=== PATIENT | female | born 1970 | race Caucasian/White ===

== ENCOUNTER 2017-09-19 13:33 | Day surgery (SDC) | payer OTHER ==
[~2017-09-19 13:33] MED LIST: ALBU90OI6; CEPH500 PO; Colace100 MG PO; ESZO3; FAMO20; HYDR-86 PO; INSLI100I SC; INSULANI SC; Inderal40 MG PO; LABE200 PO; LOSA50; Norco 7.5-3251 EACH; OXYC5 PO; PREPOPIK POWDE1 EACH; SERT100
[2017-12-05] MEDS ORDERED: Inderal 20 mg T20 MG (12:50)
[2017-12-05] MEDS ORDERED: ALBU90OI6 (12:51)
[2017-12-05] MEDS ORDERED: SERT100 (12:51)
[2017-12-05] MEDS ORDERED: Prilosec Otc20 MG (12:51)
== END 2017-09-19 14:24 | disposition home or self-care (01) ==
LOC: ORSCSDS 13:33
DX: D50.9 Iron deficiency anemia, unspecified (principal); Z53.9 Procedure and treatment not carried out, unspecified reason
CPT/HCPCS: J0330; J1980; J2405

== ENCOUNTER 2017-09-20 10:38 | Day surgery (SDC) | payer OTHER ==
[~2017-09-20] VITALS: Ht 165.1 cm; Wt 66.4 kg
[2017-12-05] MEDS ORDERED: Inderal 20 mg T20 MG (12:50)
[2017-12-05] MEDS ORDERED: SERT100 (12:51)
[2017-12-05] MEDS ORDERED: Prilosec Otc20 MG (12:51)
[2017-12-05] MEDS ORDERED: ALBU90OI6 (12:51)
== END 2017-09-20 13:25 | disposition home or self-care (01) ==
LOC: ORSCSDS 10:38
PROVIDERS: Internal Medicine Gastroenterology
PROC: 0DBN8ZX Excision of Sigmoid Colon, Via Natural or Artificial Opening Endoscopic, Diagnostic (ICD-10-PCS; principal; 2017-09-20 12:00)
PROC: 0DB68ZX Excision of Stomach, Via Natural or Artificial Opening Endoscopic, Diagnostic (ICD-10-PCS; principal; 2017-09-20 12:00)
DX: D50.9 Iron deficiency anemia, unspecified (principal); K29.00 Acute gastritis without bleeding; K20.9 Esophagitis, unspecified; K52.9 Noninfective gastroenteritis and colitis, unspecified; D12.5 Benign neoplasm of sigmoid colon; K64.8 Other hemorrhoids; Z98.84 Bariatric surgery status; Z86.010 Personal history of colon polyps; I10 Essential (primary) hypertension; E78.5 Hyperlipidemia, unspecified; B19.20 Unspecified viral hepatitis C without hepatic coma; J45.909 Unspecified asthma, uncomplicated; L93.0 Discoid lupus erythematosus; F17.210 Nicotine dependence, cigarettes, uncomplicated
CPT/HCPCS: 88305; 88342

== ENCOUNTER 2017-12-12 06:34 | Day surgery (SDC) | payer OTHER ==
[~2017-12-12] VITALS: Ht 165.1 cm; Wt 78.8 kg
[~2017-12-12 06:34] MED LIST changes: +Inderal 20 mg T20 MG; +Prilosec Otc20 MG
== END 2017-12-12 08:42 | disposition home or self-care (01) ==
LOC: ORSCSDS 06:34
PROVIDERS: Internal Medicine Gastroenterology
PROC: 0DB68ZX Excision of Stomach, Via Natural or Artificial Opening Endoscopic, Diagnostic (ICD-10-PCS; principal; 2017-12-12 08:00)
DX: D50.9 Iron deficiency anemia, unspecified (principal); K29.70 Gastritis, unspecified, without bleeding; K29.80 Duodenitis without bleeding; K20.9 Esophagitis, unspecified; R11.2 Nausea with vomiting, unspecified; I10 Essential (primary) hypertension; E78.5 Hyperlipidemia, unspecified; Z98.84 Bariatric surgery status; B19.20 Unspecified viral hepatitis C without hepatic coma; J45.909 Unspecified asthma, uncomplicated; Z87.891 Personal history of nicotine dependence; Z79.899 Other long term (current) drug therapy
CPT/HCPCS: 88305; 88342; J0330; J1980; J2405; J7120

== ENCOUNTER → 2020-01-28 | Outpatient (CLI) | payer OTHER ==
[2020-01-28 10:17] LABS: BASOPHILS ABSOLUTE AUTO 0.11 K/mm3 (0.00-0.23); BASOPHILS PERCENT AUTO 1 % (0-2); EOSINOPHILS ABSOLUTE AUTO 0.28 K/mm3 (0.00-0.68); EOSINOPHILS PERCENT AUTO 2 % (0-6); Hematocrit 43.2 % (33.0-51.0); Hemoglobin 14.6 g/dL (11.5-16.0); IMMATURE GRAN ABSOLUTE AUTO 0.04 K/mm3 (0.00-0.10); IMMATURE GRAN PERCENT AUTO 0 % (0-1); LYMPHOCYTES PERCENT AUTO 23 % (21-46); MONOCYTES ABSOLUTE AUTO 1.14 K/mm3 (0.16-1.47); MONOCYTES PERCENT AUTO 9 % (4-13); Mean Corpuscular HGB 30.3 pg (26.0-34.0); Mean Corpuscular HGB Conc 33.8 g/dL (31.5-36.5); Mean Corpuscular Volume 90 fL (80-100); Mean Platelet Volume 9.4 fL (9.1-12.4); NEUTROPHILS ABSOLUTE AUTO 8.06 K/mm3 (1.96-9.15); NEUTROPHILS PERCENT AUTO 64 % (41-73); Platelet Count 366 K/mm3 (150-400); RDW Coefficient Variation 14.8 % (11.7-14.2); RDW Standard Deviation 48.6 fL (35.1-46.3); Red Blood Cell Count 4.82 M/mm3 (3.80-5.20); White Blood Cell Count 12.53 K/mm3 (4.00-11.30)
[2020-01-28 10:31] LABS: Alanine Aminotransfer (ALT/SGP 14 U/L (12-78); Albumin, Blood 4.2 g/dL (3.4-5.0); Albumin/Globulin Ratio 1.3 (0.8-1.8); Alk Phos 43 U/L (40-126); Anion Gap 8 mmol/L (6-16); Aspartate Aminotrans (AST/SGOT 14 U/L (12-37); Bilirubin, Total 0.3 mg/dL (0.1-1.0); Blood Urea Nitrogen 18 mg/dL (8-24); CO2, Blood 28 mmol/L (21-32); Calcium, Blood 8.8 mg/dL (8.5-10.1); Chloride, Blood 107 mmol/L (98-108); Globulin, Blood 3.3 g/dL (2.2-4.0); Glomerular Filtration Rate >60 (60-); Glucose, Blood 87 mg/dL (70-99); Potassium, Blood 4.2 mmol/L (3.5-5.5); Sodium, Blood 143 mmol/L (136-145); Total Protein, Blood 7.5 g/dL (6.4-8.2)
[2020-01-28 10:32] LABS: Troponin I <0.017 ng/mL (0.000-0.040)
== END | disposition home or self-care (01) ==
LOC: LAB EV 10:13 → LAB SHORT 10:13
PROVIDERS: Physician Assistant Medical
DX: R07.89 Other chest pain (principal)
CPT/HCPCS: 80053; 84484; 85025; 85379

== ENCOUNTER 2020-02-06 18:33 | Emergency (ER) | payer OTHER | END 2020-02-06 18:55 | disposition left against medical advice (07) | LOC: ER 18:33 | DX: Z53.21 Procedure and treatment not carried out due to patient leaving prior to being seen by health care provider (principal) ==

== ENCOUNTER 2020-02-08 12:08 | Observation (INO) | payer OTHER ==
[~2020-02-08] VITALS: Ht 165.1 cm; Wt 63.2 kg
[2020-02-08 12:40] LABS: BASOPHILS ABSOLUTE AUTO 0.09 K/mm3 (0.00-0.23); BASOPHILS PERCENT AUTO 1 % (0-2); EOSINOPHILS ABSOLUTE AUTO 0.34 K/mm3 (0.00-0.68); EOSINOPHILS PERCENT AUTO 3 % (0-6); Hematocrit 45.7 % (33.0-51.0); Hemoglobin 15.1 g/dL (11.5-16.0); IMMATURE GRAN ABSOLUTE AUTO 0.03 K/mm3 (0.00-0.10); IMMATURE GRAN PERCENT AUTO 0 % (0-1); LYMPHOCYTES ABSOLUTE AUTO 2.98 K/mm3 (0.84-5.20); LYMPHOCYTES PERCENT AUTO 29 % (21-46); MONOCYTES ABSOLUTE AUTO 0.89 K/mm3 (0.16-1.47); MONOCYTES PERCENT AUTO 9 % (4-13); Mean Corpuscular HGB 30.1 pg (26.0-34.0); Mean Corpuscular Volume 91 fL (80-100); Mean Platelet Volume 9.4 fL (9.1-12.4); NEUTROPHILS ABSOLUTE AUTO 6.09 K/mm3 (1.96-9.15); NEUTROPHILS PERCENT AUTO 58 % (41-73); Platelet Count 385 K/mm3 (150-400); RDW Coefficient Variation 14.8 % (11.7-14.2); RDW Standard Deviation 49.5 fL (35.1-46.3); Red Blood Cell Count 5.02 M/mm3 (3.80-5.20); White Blood Cell Count 10.42 K/mm3 (4.00-11.30)
[2020-02-08 13:04] LABS: Alanine Aminotransfer (ALT/SGP 19 U/L (12-78); Albumin, Blood 3.8 g/dL (3.4-5.0); Albumin/Globulin Ratio 1.1 (0.8-1.8); Alk Phos 43 U/L (50-136); Anion Gap 4 mmol/L (6-16); Aspartate Aminotrans (AST/SGOT 15 U/L (12-37); Bilirubin, Total 0.5 mg/dL (0.1-1.0); Blood Urea Nitrogen 12 mg/dL (8-24); Bun/Creatinine Ratio 18.7 (12.0-20.0); CO2, Blood 28 mmol/L (21-32); Calcium, Blood 8.5 mg/dL (8.5-10.1); Chloride, Blood 107 mmol/L (98-108); Creatinine, Blood 0.64 mg/dL (0.40-1.00); Globulin, Blood 3.5 g/dL (2.2-4.0); Glomerular Filtration Rate >60 (60-); Glucose, Blood 95 mg/dL (70-99); Potassium, Blood 3.7 mmol/L (3.5-5.5); Sodium, Blood 139 mmol/L (136-145); Total Protein, Blood 7.3 g/dL (6.4-8.2); Troponin I <0.015 ng/mL (0.000-0.040)
[2020-02-08] MEDS ORDERED: NEURONTIN300 MG PO (15:27)
[2020-02-08] MEDS ORDERED: HYDROCODONE-AC1 EAC7 PO (15:27)
--- NOTE | 2020-02-08 18:05 | NUR ---
SUMMARY PT ARRIVED FROM THE ER FOR CHEST PAIN, PT IS ALERT AND ORIENTED, INDEPENDENT IN THE ROOM, DENIES CHEST PAIN AT THIS TIME, PLAN FOR STRESS TEST IN AM, VSS, NO ACUTE CHANGES, WILL CONT TO MONITOR
--- NOTE | 2020-02-09 04:24 | NUR ---
SHIFT SUMMARY NO ACUTE CHANGES TO REPORT OVERNIGHT. PT HAS RESTED WELL AND DENIED NEEDS. SHE HAS DENIED CP, SOB OR NAUSEA. TROPONIN'S HAVE REMAINED NEGATIVE, AND VITALS ARE STABLE. PLAN IS FOR STRESS TEST TODAY. NPO AFTER BREAKFAST. BED IN LOWEST POSITION, CALL LIGHT WITHIN REACH. WILL CONTINUE TO MONITOR AND REPORT TO ONCOMING RN.
--- NOTE | 2020-02-09 18:26 | NUR ---
SHIFT SUMMARY PT ALERT AND ORIENTED THIS SHIFT. PT INDEPENDENT IN THE ROOM. CARDIAC STRESS TEST PERFORMED TODAY. PT DENIES CP THROUGHOUT THIS SHIFT. PT SITTING IN BED WATCHING TELEVISION.
--- NOTE | 2020-02-09 19:32 | NUR ---
PT says she wants to discharge having no chest pain. Had both parts of cardiac stress test today. Says she will go AMA in 1 hour if MD does not DC home prior to then. Day RN Tony says he tried to reach DR without success. Will discuss with rewrite editor. Troponins negative. Smoker says chest pain related to tobacco dependance.
--- NOTE | 2020-02-09 19:52 | NUR ---
Paged hospitalist INOCENCIA Almaguer. No call back yet offered AMA form as PT says she is leaving AMA.
--- NOTE | 2020-02-09 20:06 | NUR ---
PT had signed AMA form dc home after dc IV DC tele monitor. Denies chestpain & pleasant. Will notify MD of AMA dc .
--- NOTE | 2020-02-09 21:01 | NUR ---
late entry for INOCENC[facility] Almaguer called back & was informed that PT had DC AMA at 2004. He called back around 2024.
== END 2020-02-09 20:05 | disposition left against medical advice (07) ==
LOC: ER 12:08 → MEDS 12:09
PROVIDERS: Physician Assistant; ADMIT Internal Medicine
DX: R07.89 Other chest pain (principal); I10 Essential (primary) hypertension; F17.210 Nicotine dependence, cigarettes, uncomplicated; R73.03 Prediabetes; Z90.3 Acquired absence of stomach [part of]; Z88.5 Allergy status to narcotic agent; Z79.899 Other long term (current) drug therapy; Z79.891 Long term (current) use of opiate analgesic
CPT/HCPCS: 36415; 71046; 78452; 80053; 84484; 85025; 93005; 93010; 93017; 96372; 99285-25; A9270-GY; A9500; G0378; J0706; J1650; J2785

== ENCOUNTER 2020-06-07 07:48 | Day surgery (SDC) | payer OTHER ==
[~2020-06-07 07:48] MED LIST changes: +ACET325 PO; +ALBU3IS INH; +AMLO10 PO; +AMLODIPINE BESYL5 MG PO; +ATOR20 PO; +Aspirin EC81 MG PO; +CHANTIX1 MG PO; +CLOP75 PO; +FAMO20 PO; +HYDROCODONE-AC1 EAC7 PO; +LOSA50 PO; +METO25ER PO; +NEURONTIN300 MG PO
--- NOTE | 2020-06-07 09:24 | NUR ---
Patient up to Ambulate independently. Gait steady. Discharge instructions reviewed with patient. Patient verbalizes understanding. Copy given to patient to take home. NO MEDS GIVEN TO PATEINT FOR PROCEDURE. AMBULATED OUT
== END 2020-06-07 22:00 | disposition home or self-care (01) ==
LOC: CT 07:48 → ORD 07:48 → CT 09:00 → ORD 22:00
DX: I25.10 Atherosclerotic heart disease of native coronary artery without angina pectoris (principal); I10 Essential (primary) hypertension; E78.5 Hyperlipidemia, unspecified; J44.9 Chronic obstructive pulmonary disease, unspecified; Z79.82 Long term (current) use of aspirin; Z79.899 Other long term (current) drug therapy; Z87.891 Personal history of nicotine dependence; Z88.5 Allergy status to narcotic agent
CPT/HCPCS: 75574; Q9967

== ENCOUNTER → 2020-09-15 | Outpatient (CLI) | payer OTHER, SELFPAY ==
[~2020-09-15] MED LIST changes: +ACYC400 PO; +AMLO5 PO; +Isosorbide Mono30 MG; +LIPITOR80 MG PO; +Norco 10-325 T1 EACH PO; +RANO500T PO; +VALA500
[2020-09-15 14:24] LABS: BASOPHILS ABSOLUTE AUTO 0.08 K/mm3 (0.00-0.23); BASOPHILS PERCENT AUTO 1 % (0-2); EOSINOPHILS ABSOLUTE AUTO 0.29 K/mm3 (0.00-0.68); EOSINOPHILS PERCENT AUTO 3 % (0-6); Hematocrit 42.8 % (33.0-51.0); Hemoglobin 14.2 g/dL (11.5-16.0); IMMATURE GRAN ABSOLUTE AUTO 0.03 K/mm3 (0.00-0.10); IMMATURE GRAN PERCENT AUTO 0 % (0-1); LYMPHOCYTES PERCENT AUTO 27 % (21-46); MONOCYTES ABSOLUTE AUTO 0.82 K/mm3 (0.16-1.47); MONOCYTES PERCENT AUTO 7 % (4-13); Mean Corpuscular HGB 29.1 pg (26.0-34.0); Mean Corpuscular HGB Conc 33.2 g/dL (31.5-36.5); Mean Corpuscular Volume 88 fL (80-100); Mean Platelet Volume 9.7 fL (9.1-12.4); NEUTROPHILS ABSOLUTE AUTO 6.83 K/mm3 (1.96-9.15); NEUTROPHILS PERCENT AUTO 62 % (41-73); Platelet Count 316 K/mm3 (150-400); RDW Coefficient Variation 14.6 % (11.7-14.2); RDW Standard Deviation 46.5 fL (35.1-46.3); Red Blood Cell Count 4.88 M/mm3 (3.80-5.20); White Blood Cell Count 11.05 K/mm3 (4.00-11.30)
[2020-09-15 14:31] LABS: Anion Gap 9 mmol/L (6-16); Blood Urea Nitrogen 13 mg/dL (8-24); Bun/Creatinine Ratio 20.3 (12.0-20.0); CO2, Blood 26 mmol/L (21-32); Calcium, Blood 8.7 mg/dL (8.5-10.1); Chloride, Blood 103 mmol/L (98-108); Creatinine, Blood 0.64 mg/dL (0.40-1.00); Glomerular Filtration Rate >60 (60-); Glucose, Blood 99 mg/dL (70-99); Potassium, Blood 3.9 mmol/L (3.5-5.5); Sodium, Blood 138 mmol/L (136-145)
== END ==
LOC: LAB SHORT 14:17 → LAB EV 14:17
PROVIDERS: Physician Assistant Surgical
DX: R07.89 Other chest pain (principal)
CPT/HCPCS: 80048; 84484; 85025

== ENCOUNTER 2020-11-12 09:01 | Day surgery (SDC) | payer OTHER, SELFPAY ==
[~2020-11-12] VITALS: Ht 165.1 cm; Wt 78.0 kg
[~2020-11-12 09:01] MED LIST changes: -ACYC400 PO; -AMLO5 PO; -Isosorbide Mono30 MG; -LIPITOR80 MG PO; -Norco 10-325 T1 EACH PO; -RANO500T PO; -VALA500
[2020-11-12] MEDS ORDERED: VALA500 (09:56)
[2020-11-12] MEDS ORDERED: Isosorbide Mono30 MG (12:07)
--- NOTE | 2020-11-12 14:16 | NUR ---
ASSUMED CARE OF PATIENT FROM ADAM PERALTA. PATIENT RELAXING IN THE RECLINER, ON THE MONITOR. VVS. NO PAIN NOTED. TR BAND IN PLACE TO THE RIGHT RADIAL AND FLAT AT THIS TIME. DUE TO DISCHARGE HOME AROUND 1500. CALL LIGHT IN REACH.
--- NOTE | 2020-11-12 14:51 | NUR ---
PATEINT UP TO THE RESTROOM. OFF MONITOR AND STARTING TO GET DRESSED AND TR BAND FLATBUT SITE STARTED BLEEDING. MANUAL PRESSURE HELP AND TR BAND REINFLATED WITH 12 MNL OF AIR. PATIENT REMAINS IN RECLINER. CONTINUE TO MONITOR.
[2020-11-12] MEDS ORDERED: CLOP75 PO (15:35)
--- NOTE | 2020-11-12 15:41 | NUR ---
BEGAN DEFLATING TR BAND AGAIN.2 ML REMOVED. NO BLEEDING NOTED. REVIEWED DISCHARGE INSTRUCTIONS WITH PATIENT AND FAMILY (AT THE BEDSIDE). REVIEWED NEW SCRIPT FOR IMDUR AND TO TAKE 15 ML DAILY. MONITOR BP AND WATCH FOR DIZZINESS WHEN GETTING UP SUDDENLY. PATIENT STATES SHE IS ABLE TO MONITOR HER BLOOD PRESSURES AT HOME AND CAN KEEP A LOG FOR THE MD. FOLLOW UP APPOINTMENT November AT 1130. ALL DISCHARGE PAPERWORK SIGNED AND COPIES GIVEN TO THE PATIENT.
--- NOTE | 2020-11-12 16:12 | NUR ---
TR BAND FLAT FOR THE SECOND TIME AT 1605. NO BLEEDING OR HEMATOMA NOTED. FAMILY AT THE BEDSIDE. NO PAIN NOTED FROM THE PATEINT.
--- NOTE | 2020-11-12 16:27 | NUR ---
PATIENT UP AND DRESSED. TR BAND REMAINS IN PLACE. NO PAIN NOTED. NO BLEEDING NOTED. NO HEMATOMA NOTED.
--- NOTE | 2020-11-12 16:34 | NUR ---
PATIENT TR BAND REMOVED AND SITE CLEANED. PRESSURE DRESSING PLACED AND WHITE BOARD REPLACED TO THE RIGHT WRIST TO REMIND PATIENT NOT TO BEND OR USE ARM FOR LIFTING, PUSHING, PULLING FOR THE NEXT 24-48 HOURS. PATIENT UNDERSTANDS TO KEEP THE WRIST CLEAN AND DRY AND REPORT ANY SIGNS OF INFECTION, FEVER, REDNESS OR IF REBLEEDIN OCCURS THEN APPLY PRESSURE AND RETURN TO THE HOPSITAL. PELON VERBALIZED ALL AND IS DISCHARGED HOME VIA WHEELCHAIR TO HOME WITH DIRECTOR OF LOSS PREVENTION. PATIENT HEADED TO COMPUTER AIDED DESIGN TECHNICIAN NEW SCRIPT AT [facility] [place]. VVS, NO PAIN.
[2021-03-14] MEDS ORDERED: RANO500T PO (14:10)
[2021-03-14] MEDS ORDERED: ACYC400 PO ×2 (14:10→15:42)
[2021-03-14] MEDS ORDERED: AMLO5 PO (15:42)
[2021-03-14] MEDS ORDERED: Norco 10-325 T1 EACH PO (15:44)
[2021-03-15] MEDS ORDERED: LIPITOR80 MG PO (09:44)
== END 2020-11-12 16:46 | disposition home or self-care (01) ==
LOC: MHTC 09:01
DX: I25.118 Atherosclerotic heart disease of native coronary artery with other forms of angina pectoris (principal); I11.0 Hypertensive heart disease with heart failure; I50.9 Heart failure, unspecified; Z88.5 Allergy status to narcotic agent; E78.5 Hyperlipidemia, unspecified; Z87.891 Personal history of nicotine dependence
CPT/HCPCS: 76937; 85347; 93454; 93571; 99152; 99153; C1769; C1887; C1894; J1644; J2250; J2370; J3010; J7030; J7050; Q9967

== ENCOUNTER 2020-11-25 08:30 | Day surgery (SDC) | payer OTHER, SELFPAY ==
[~2020-11-25] VITALS: Ht 165.1 cm; Wt 76.4 kg
[~2020-11-25 08:30] MED LIST changes: +Isosorbide Mono30 MG; +VALA500
--- NOTE | 2020-11-25 09:01 | NUR ---
11/25/20 0901 Christen Hope 1 TRY RIGHT WRIST VALVE 2 TRY RIGHT UPPER ARM VALVE
[2021-03-14] MEDS ORDERED: RANO500T PO (14:10)
[2021-03-14] MEDS ORDERED: ACYC400 PO ×2 (14:10→15:42)
[2021-03-14] MEDS ORDERED: AMLO5 PO (15:42)
[2021-03-14] MEDS ORDERED: Norco 10-325 T1 EACH PO (15:44)
[2021-03-15] MEDS ORDERED: LIPITOR80 MG PO (09:44)
== END 2020-11-25 11:38 | disposition home or self-care (01) ==
LOC: ORSCSDS 08:30
PROVIDERS: Internal Medicine Gastroenterology
PROC: 0DBL8ZX Excision of Transverse Colon, Via Natural or Artificial Opening Endoscopic, Diagnostic (ICD-10-PCS; principal; 2020-11-25 09:45)
DX: R93.3 Abnormal findings on diagnostic imaging of other parts of digestive tract (principal); D12.3 Benign neoplasm of transverse colon; D64.9 Anemia, unspecified; Z98.84 Bariatric surgery status; Z86.19 Personal history of other infectious and parasitic diseases; K57.30 Diverticulosis of large intestine without perforation or abscess without bleeding; Z83.71 Family history of colonic polyps; K64.8 Other hemorrhoids; Z79.899 Other long term (current) drug therapy
CPT/HCPCS: 88305; J2704; J7120

== ENCOUNTER 2021-04-02 12:39 | Emergency (ER) | payer OTHER ==
[~2021-04-02] VITALS: Ht 165.1 cm; Wt 81.7 kg
[~2021-04-02 12:39] MED LIST changes: +ACYC400 PO; +AMLO5 PO; +LIPITOR80 MG PO; +Norco 10-325 T1 EACH PO; +RANO500T PO
[2021-04-02 13:05] LABS: BASOPHILS PERCENT AUTO 1 % (0-2); EOSINOPHILS PERCENT AUTO 7 % (0-6); Hemoglobin 13.5 g/dL (11.5-16.0); IMMATURE GRAN ABSOLUTE AUTO 0.01 K/mm3 (0.00-0.10); IMMATURE GRAN PERCENT AUTO 0 % (0-1); LYMPHOCYTES ABSOLUTE AUTO 3.02 K/mm3 (0.84-5.20); LYMPHOCYTES PERCENT AUTO 41 % (21-46); MONOCYTES ABSOLUTE AUTO 0.74 K/mm3 (0.16-1.47); MONOCYTES PERCENT AUTO 10 % (4-13); Mean Corpuscular HGB 30.5 pg (26.0-34.0); Mean Corpuscular HGB Conc 33.8 g/dL (31.5-36.5); Mean Corpuscular Volume 90 fL (80-100); Mean Platelet Volume 9.3 fL (9.1-12.4); NEUTROPHILS ABSOLUTE AUTO 3.07 K/mm3 (1.96-9.15); NEUTROPHILS PERCENT AUTO 41 % (41-73); Platelet Count 415 K/mm3 (150-400); RDW Coefficient Variation 13.9 % (11.7-14.2); RDW Standard Deviation 46.5 fL (35.1-46.3); Red Blood Cell Count 4.43 M/mm3 (3.80-5.20); White Blood Cell Count 7.44 K/mm3 (4.00-11.30)
[2021-04-02 13:28] LABS: Alanine Aminotransfer (ALT/SGP 22 U/L (12-78); Albumin, Blood 3.7 g/dL (3.4-5.0); Alk Phos 38 U/L (50-136); Anion Gap 5 mmol/L (6-16); Aspartate Aminotrans (AST/SGOT 14 U/L (12-37); Bilirubin, Total 0.4 mg/dL (0.1-1.0); Blood Urea Nitrogen 17 mg/dL (8-24); Bun/Creatinine Ratio 26.7 (12.0-20.0); CO2, Blood 27 mmol/L (21-32); Calcium, Blood 8.5 mg/dL (8.5-10.1); Chloride, Blood 109 mmol/L (98-108); Creatinine, Blood 0.64 mg/dL (0.40-1.00); Globulin, Blood 3.6 g/dL (2.2-4.0); Glomerular Filtration Rate >60 (60-); Glucose, Blood 93 mg/dL (70-99); Potassium, Blood 4.1 mmol/L (3.5-5.5); Sodium, Blood 141 mmol/L (136-145); Total Protein, Blood 7.3 g/dL (6.4-8.2); Troponin I <0.015 ng/mL (0.000-0.040)
== END 2021-04-02 18:19 | disposition home or self-care (01) ==
LOC: ER 12:39
PROVIDERS: Physician Assistant
DX: R07.89 Other chest pain (principal); I10 Essential (primary) hypertension; E11.9 Type 2 diabetes mellitus without complications; E78.5 Hyperlipidemia, unspecified; F17.210 Nicotine dependence, cigarettes, uncomplicated; Z95.5 Presence of coronary angioplasty implant and graft; Z79.82 Long term (current) use of aspirin; Z79.899 Other long term (current) drug therapy
CPT/HCPCS: 36415; 71046; 80053; 84484; 85025; 93005; 93010; 99285-25

== ENCOUNTER 2021-04-21 08:02 | Emergency (ER) | payer OTHER ==
[~2021-04-21] VITALS: Ht 170.2 cm; Wt 72.6 kg
== END 2021-04-21 09:09 | disposition home or self-care (01) ==
LOC: ER 08:02
DX: U07.1 COVID-19 (principal); E11.9 Type 2 diabetes mellitus without complications; I10 Essential (primary) hypertension; Z87.891 Personal history of nicotine dependence; Z79.899 Other long term (current) drug therapy; Z79.82 Long term (current) use of aspirin; Z79.02 Long term (current) use of antithrombotics/antiplatelets
CPT/HCPCS: 99284

== ENCOUNTER → 2022-01-03 | Outpatient (CLI) | payer OTHER | END | disposition home or self-care (01) | LOC: PLD 12:12 → LAB SHORT 12:12 | DX: L30.8 Other specified dermatitis (principal) | CPT/HCPCS: 88305; 88313 ==

== ENCOUNTER 2022-06-01 08:27 | Day surgery (SDC) | payer OTHER ==
[2022-05-30 16:58] LABS: BASOPHILS PERCENT AUTO 1 % (0-2); EOSINOPHILS ABSOLUTE AUTO 0.37 K/mm3 (0.00-0.68); EOSINOPHILS PERCENT AUTO 3 % (0-6); Hematocrit 43.9 % (33.0-51.0); Hemoglobin 14.3 g/dL (11.5-16.0); IMMATURE GRAN ABSOLUTE AUTO 0.04 K/mm3 (0.00-0.10); IMMATURE GRAN PERCENT AUTO 0 % (0-1); LYMPHOCYTES ABSOLUTE AUTO 2.97 K/mm3 (0.84-5.20); LYMPHOCYTES PERCENT AUTO 27 % (21-46); MONOCYTES ABSOLUTE AUTO 0.88 K/mm3 (0.16-1.47); MONOCYTES PERCENT AUTO 8 % (4-13); Mean Corpuscular HGB 29.3 pg (26.0-34.0); Mean Corpuscular HGB Conc 32.6 g/dL (31.5-36.5); Mean Corpuscular Volume 90 fL (80-100); Mean Platelet Volume 9.8 fL (9.1-12.4); NEUTROPHILS PERCENT AUTO 60 % (41-73); Platelet Count 360 K/mm3 (150-400); RDW Coefficient Variation 14.2 % (11.7-14.2); RDW Standard Deviation 46.7 fL (35.1-46.3); Red Blood Cell Count 4.88 M/mm3 (3.80-5.20); White Blood Cell Count 10.96 K/mm3 (4.00-11.30)
[2022-05-30 18:01] LABS: Anion Gap 6 mmol/L (6-16); Beta HCG, Quantitative, Serum <1 mIU/mL (0-3); Blood Urea Nitrogen 12 mg/dL (8-24); Bun/Creatinine Ratio 19.6 (12.0-20.0); CO2, Blood 24 mmol/L (21-32); Calcium, Blood 9.6 mg/dL (8.5-10.1); Chloride, Blood 104 mmol/L (98-108); Creatinine, Blood 0.61 mg/dL (0.40-1.00); Glomerular Filtration Rate 108 (60-); Glucose, Blood 100 mg/dL (70-99); Potassium, Blood 3.8 mmol/L (3.5-5.5); Sodium, Blood 134 mmol/L (136-145)
[~2022-06-01] VITALS: Ht 165.1 cm; Wt 87.0 kg
[2022-06-01] MEDS ORDERED: ACYC400 PO (08:56)
--- NOTE | 2022-06-01 09:25 | NUR ---
Ambulatory in Day Surgery History, Chart, Medications and Allergies reviewed before start of procedure. Lungs clear T/O to Auscultation. Pre-Op teaching done. Pt verbalizes understanding.
--- NOTE | 2022-06-01 12:47 | NUR ---
06/01/22 1247 Anahi Wade CATH PLACED BY RODRIGO PHAN, AFTER DRAPPING.
--- NOTE | 2022-06-01 17:46 | NUR ---
NO VAGINAL DRAINAGE. PT REPORTED LOWER ABD GAS PAINS/BLADDER SPASMS RESTING WITH EYES CLOSED AFTER MORPHINE GIVEN. TAKING SMALL AMOUNT PO INTAKE WITHOUT NAUSEA. OSCAR WITH CLEAR YELLOW URINE OUTPUT
--- NOTE | 2022-06-02 01:21 | NUR ---
PT REFUSED ABD BINDER AT THIS TIME. EDUCATED ON BENEFIT POST-OPERATIVELY AND LEFT AT BEDSIDE.
[2022-06-02 04:29] LABS: BASOPHILS ABSOLUTE AUTO 0.04 K/mm3 (0.00-0.23); BASOPHILS PERCENT AUTO 0 % (0-2); EOSINOPHILS ABSOLUTE AUTO 0.04 K/mm3 (0.00-0.68); EOSINOPHILS PERCENT AUTO 0 % (0-6); Hematocrit 41.1 % (33.0-51.0); Hemoglobin 13.6 g/dL (11.5-16.0); IMMATURE GRAN ABSOLUTE AUTO 0.04 K/mm3 (0.00-0.10); IMMATURE GRAN PERCENT AUTO 0 % (0-1); LYMPHOCYTES ABSOLUTE AUTO 2.69 K/mm3 (0.84-5.20); LYMPHOCYTES PERCENT AUTO 16 % (21-46); MONOCYTES ABSOLUTE AUTO 1.57 K/mm3 (0.16-1.47); MONOCYTES PERCENT AUTO 9 % (4-13); Mean Corpuscular HGB 29.8 pg (26.0-34.0); Mean Corpuscular HGB Conc 33.1 g/dL (31.5-36.5); Mean Corpuscular Volume 90 fL (80-100); Mean Platelet Volume 10.1 fL (9.1-12.4); NEUTROPHILS ABSOLUTE AUTO 12.57 K/mm3 (1.96-9.15); NEUTROPHILS PERCENT AUTO 74 % (41-73); Platelet Count 347 K/mm3 (150-400); RDW Coefficient Variation 14.4 % (11.7-14.2); RDW Standard Deviation 48.7 fL (35.1-46.3); Red Blood Cell Count 4.56 M/mm3 (3.80-5.20); White Blood Cell Count 16.95 K/mm3 (4.00-11.30)
--- NOTE | 2022-06-02 04:38 | NUR ---
SHIFT SUMMARY: PT RESTED COMFORTABLY T/O THE NIGHT. DENIED NAUSEA. TOLERATING ADVANCED DIET WITH PO FLUIDS AND JELLO. OSCAR REMAINS IN PLACE AND IS PATENT. A&OX4. REPORTS THAT SHE IS PASSING GAS. MACY PAD REMAINS IN PLACE WITH SCANT DISCHARGE NOTED. C/O MILD PAIN T/O THE NIGHT THAT WAS WELL MANAGED PER EMAR ORDERS. PLANS TO DISCHARGE TODAY.
[2022-06-02] MEDS ORDERED: IBUP400 PO (10:04)
[2022-06-02] MEDS ORDERED: Percocet 5-3251 EACH PO (10:05)
[2022-06-02] MEDS ORDERED: PROM12.5S PR (10:07)
[2022-06-02] MEDS ORDERED: SIME80CH PO (10:08)
== END 2022-06-02 11:30 | disposition home or self-care (01) ==
LOC: SURS 08:27 → ORSCMMR 08:27 → SURS 16:08 → ORSCMMR 06-02 11:30 → SURS 06-02 11:30
PROVIDERS: Obstetrics & Gynecology
PROC: 0UT74ZZ Resection of Bilateral Fallopian Tubes, Percutaneous Endoscopic Approach (ICD-10-PCS; principal; 2022-06-01 09:30)
PROC: 0UBF4ZX Excision of Cul-de-sac, Percutaneous Endoscopic Approach, Diagnostic (ICD-10-PCS; principal; 2022-06-01 09:30)
PROC: 0UT94ZL Resection of Uterus, Supracervical, Percutaneous Endoscopic Approach (ICD-10-PCS; principal; 2022-06-01 09:30)
DX: N92.1 Excessive and frequent menstruation with irregular cycle (principal); N93.8 Other specified abnormal uterine and vaginal bleeding; N94.6 Dysmenorrhea, unspecified; I10 Essential (primary) hypertension; E78.5 Hyperlipidemia, unspecified; I25.10 Atherosclerotic heart disease of native coronary artery without angina pectoris; J45.909 Unspecified asthma, uncomplicated; Z87.891 Personal history of nicotine dependence; Z79.02 Long term (current) use of antithrombotics/antiplatelets; Z79.899 Other long term (current) drug therapy; Z79.82 Long term (current) use of aspirin
CPT/HCPCS: 58542; 49321; S2900; 36415; 80048; 84702; 85025; 86850; 86900; 86901; 88305; 88307; A9270; J0690; J1100; J1200; J1885; J2250; J2270; J2405; J2704; J3010; J7120

== ENCOUNTER → 2022-11-13 | Outpatient (CLI) | payer OTHER ==
[~2022-11-13] MED LIST changes: +ALBU8HFA2 INH; +AZIT500 PO; +CLOT10 MT; +GUAI600T33 PO; +HYDACE10B PO; +IBUP400 PO; +IPRAT-ALBUT 0.5-3 ML INH; +PROM12.5S PR; +Percocet 5-3251 EACH PO; +Prednisone10 MG PO; +SIME80CH PO; +SYMBICORT 80-10.2 GM INH; +VISBIOME 112.51 EACH PO
[2022-11-13 10:40] LABS: Hematocrit 46.7 % (33.0-51.0); Hemoglobin 15.9 g/dL (11.5-16.0); Mean Corpuscular HGB 29.9 pg (26.0-34.0); Mean Corpuscular Volume 88 fL (80-100); Mean Platelet Volume 9.2 fL (9.1-12.4); Platelet Count 298 K/mm3 (150-400); RDW Coefficient Variation 15.4 % (11.7-14.2); RDW Standard Deviation 49.1 fL (35.1-46.3); Red Blood Cell Count 5.32 M/mm3 (3.80-5.20); White Blood Cell Count 22.08 K/mm3 (4.00-11.30)
[2022-11-13 11:04] LABS: Albumin, Blood 3.8 g/dL (3.4-5.0); Albumin/Globulin Ratio 0.9 (0.8-1.8); Bilirubin, Total 0.3 mg/dL (0.1-1.0); Bun/Creatinine Ratio 20.6 (12.0-20.0); Creatinine, Blood 0.68 mg/dL (0.40-1.00); Globulin, Blood 4.1 g/dL (2.2-4.0); Total Protein, Blood 7.9 g/dL (6.4-8.2)
[2022-11-13 12:20] LABS: BAND PERCENT MAN 3 % (0-8); BASOPHILS PERCENT MAN 0 % (0-2); EOSINOPHILS PERCENT MAN 0 % (0-6); LYMPHOCYTES % ATYPICAL MANUAL 2 % (0-0); LYMPHOCYTES ABSOLUTE MAN 8.61 K/mm3 (0.84-5.20); LYMPHOCYTES PERCENT MAN 37 % (21-46); METAMYELOCYTE ABSOLUTE MAN 0.22 K/mm3 (0.00-0.00); METAMYELOCYTE PERCENT MAN 1 % (0-0); MONOCYTES ABSOLUTE MAN 1.98 K/mm3 (0.16-1.47); MONOCYTES PERCENT MAN 9 % (4-13); NEUTROPHILS ABSOLUTE MAN 11.26 K/mm3 (1.96-9.15); SEG NEUTROPHILS PERCENT MAN 48 % (41-73); TOTAL CELLS COUNTED 100
== END | disposition home or self-care (01) ==
LOC: LAB SHORT 10:35 → LAB 10:35
PROVIDERS: Physician Assistant Medical
DX: R50.9 Fever, unspecified (principal)
CPT/HCPCS: 80053; 85025

== ENCOUNTER 2022-11-14 09:18 | Inpatient (IN) | payer OTHER ==
[~2022-11-14] VITALS: Ht 157.5 cm; Wt 81.3 kg
[~2022-11-14 09:18] MED LIST changes: -ALBU8HFA2 INH; -AZIT500 PO; -CLOT10 MT; -GUAI600T33 PO; -HYDACE10B PO; -IPRAT-ALBUT 0.5-3 ML INH; -Prednisone10 MG PO; -SYMBICORT 80-10.2 GM INH; -VISBIOME 112.51 EACH PO
[2022-11-14 10:16] LABS: BASOPHILS ABSOLUTE AUTO 0.09 K/mm3 (0.00-0.23); BASOPHILS PERCENT AUTO 0 % (0-2); EOSINOPHILS ABSOLUTE AUTO 0.02 K/mm3 (0.00-0.68); EOSINOPHILS PERCENT AUTO 0 % (0-6); Hematocrit 47.3 % (33.0-51.0); Hemoglobin 15.7 g/dL (11.5-16.0); Mean Corpuscular HGB 28.7 pg (26.0-34.0); Mean Corpuscular HGB Conc 33.2 g/dL (31.5-36.5); Mean Corpuscular Volume 87 fL (80-100); Mean Platelet Volume 9.3 fL (9.1-12.4); Platelet Count 375 K/mm3 (150-400); RDW Coefficient Variation 14.9 % (11.7-14.2); RDW Standard Deviation 47.6 fL (35.1-46.3); Red Blood Cell Count 5.47 M/mm3 (3.80-5.20); White Blood Cell Count 28.69 K/mm3 (4.00-11.30)
[2022-11-14 10:20] LABS: IMMATURE GRAN ABSOLUTE AUTO 0.24 K/mm3 (0.00-0.10); IMMATURE GRAN PERCENT AUTO 1 % (0-1); LYMPHOCYTES ABSOLUTE AUTO 9.36 K/mm3 (0.84-5.20); LYMPHOCYTES PERCENT AUTO 33 % (21-46); MONOCYTES ABSOLUTE AUTO 1.85 K/mm3 (0.16-1.47); MONOCYTES PERCENT AUTO 6 % (4-13); NEUTROPHILS ABSOLUTE AUTO 17.13 K/mm3 (1.96-9.15); NEUTROPHILS PERCENT AUTO 60 % (41-73)
[2022-11-14 11:06] LABS: Influenza A, PCR NEGATIVE (NEGATIVE); Influenza B, PCR NEGATIVE (NEGATIVE); Resp Syncytial Virus, PCR NEGATIVE (NEGATIVE); SARS-Cov-2 (COVID-19) PCR, MMC NEGATIVE (NEGATIVE)
[2022-11-14] MEDS ORDERED: HYDACE10B PO (14:54)
[2022-11-14 14:57] LABS: Albumin, Blood 3.4 g/dL (3.4-5.0); Albumin/Globulin Ratio 0.7 (0.8-1.8); Bilirubin, Total 0.2 mg/dL (0.1-1.0); Bun/Creatinine Ratio 25.2 (12.0-20.0); Calcium, Blood 8.6 mg/dL (8.5-10.1); Creatinine, Blood 0.48 mg/dL (0.40-1.00); Globulin, Blood 4.6 g/dL (2.2-4.0); Potassium, Blood 3.7 mmol/L (3.5-5.5)
[2022-11-14 16:46] LABS: Adenovirus Not Detected (NOT DETECT); Coronavirus 229E Not Detected (NOT DETECT); Coronavirus HKU1 Not Detected (NOT DETECT); Coronavirus NL63 Not Detected (NOT DETECT); Coronavirus OC43 Not Detected (NOT DETECT); SARS-Cov-2 (COVID-19), BioFire Not Detected (NOT DETECT)
[2022-11-14 16:47] LABS: Bordetella pertussis Not Detected (NOT DETECT); Chlamydophila pneumoniae Not Detected (NOT DETECT); Human Metapneumovirus Detected (NOT DETECT); Human Rhinovirus/Enterovirus Not Detected (NOT DETECT); Influenza A/2009-H1 Not Detected (NOT DETECT); Influenza A/H1 Not Detected (NOT DETECT); Influenza A/H3 Not Detected (NOT DETECT); Influenza B Not Detected (NOT DETECT); Mycoplasma pneumoniae Not Detected (NOT DETECT); Parainfluenza Virus 1 Not Detected (NOT DETECT); Parainfluenza Virus 2 Not Detected (NOT DETECT); Parainfluenza Virus 3 Not Detected (NOT DETECT); Parainfluenza Virus 4 Not Detected (NOT DETECT); Respiratory Syncytial Virus Not Detected (NOT DETECT)
--- NOTE | 2022-11-14 18:48 | NUR ---
SHIFT SUMMARY PT A&OX4 AND IN PLEASENT MOOD SINCE ARRIVAL TO UNIT FROM ER. TOLERATING PO INTAKE WELL. VSS. 4L NC. 1X SBA DUE TO LOW OX SAT W/ AMB, PT DESATS TO 80'S W/ AMBULATION. CALL LIGHT W/IN REACH.
[2022-11-15 05:04] LABS: Hematocrit 45.3 % (33.0-51.0); Hemoglobin 15.3 g/dL (11.5-16.0); Mean Corpuscular HGB 29.8 pg (26.0-34.0); Mean Corpuscular HGB Conc 33.8 g/dL (31.5-36.5); Mean Corpuscular Volume 88 fL (80-100); Mean Platelet Volume 9.2 fL (9.1-12.4); Platelet Count 321 K/mm3 (150-400); RDW Coefficient Variation 15.3 % (11.7-14.2); RDW Standard Deviation 50.2 fL (35.1-46.3); Red Blood Cell Count 5.14 M/mm3 (3.80-5.20); White Blood Cell Count 27.34 K/mm3 (4.00-11.30)
[2022-11-15 05:31] LABS: Bun/Creatinine Ratio 32.8 (12.0-20.0); Calcium, Blood 8.7 mg/dL (8.5-10.1); Creatinine, Blood 0.37 mg/dL (0.40-1.00); Potassium, Blood 3.7 mmol/L (3.5-5.5)
[2022-11-15 05:52] LABS: BAND PERCENT MAN 3 % (0-8); BASOPHILS PERCENT MAN 0 % (0-2); EOSINOPHILS PERCENT MAN 0 % (0-6); LYMPHOCYTES ABSOLUTE MAN 6.56 K/mm3 (0.84-5.20); LYMPHOCYTES PERCENT MAN 24 % (21-46); METAMYELOCYTE ABSOLUTE MAN 0.27 K/mm3 (0.00-0.00); METAMYELOCYTE PERCENT MAN 1 % (0-0); MONOCYTES PERCENT MAN 0 % (4-13); SEG NEUTROPHILS PERCENT MAN 72 % (41-73); TOTAL CELLS COUNTED 100
--- NOTE | 2022-11-15 08:18 | NUR ---
DURING BEDSIDE SHIFT REPORT, PT APPEARED ANXIOUS, TACHYPNEIC. O2 @ 4 L/MIN NC WITH O2 SAT 88-90%, BREATH SOUNDS WITH INSP WHEEZES AND CRACKLES IN LLL. SITTING UPRIGHT IN BED, IN TRIPOD POSITION. C/O 9/10 STERNAL CHEST PAIN WITH INSPIRATION ONLY, STATING THAT PAIN WAS SO BAD "I DON'T WANT TO BREATHE ANYMORE." INCREASED O2 TO 5 L/MIN NC, ALREADY HUMIDIFIED, RR 30-35 BPM. PHONE CALL MADE TO DR. DAVIS AT 0820 TO REPORT SXS, REQUESTED MEDICATION FOR ANXIETY AND/OR PAIN (LAST PAIN MED AT 05); PROVIDER STATED SHE WOULD EVALUATE AND PLACE ORDERS. WILL CONTINUE TO MONITOR.
--- NOTE | 2022-11-15 16:43 | NUR ---
SHIFT SUMMARY: WAS C/O 05/13 PLEURITIC PAIN THIS MORNING; RELIEVED BY ADDITION OF TORADL IV. O2 @ 4 L/MIN NC, HUMIDIFIED WITH SATS 91-92%. BREATHING IS MUCH LESS LABORED THIS AFTERNOON BUT IS STILL AUGUSTIN EVEN TO BSC. CHRONIC BACK PAIN MANAGED WITH NORCO. APPETITE OK, INCREASES WOB. CBG AND SSI ADDED D/T STEROID ADMIN. IS IN BETTER SPIRIT THIS AFTERNOON.
--- NOTE | 2022-11-16 05:20 | NUR ---
SHIFT SUMMARY 52 YR F ADMITTED ON 11/14/22 FOR ARF. FULL CODE. NO ACUTE CHANGES THIS SHIFT. PT WAS WORRIED ABOUT BEING ABLE TO SLEEP BUT SHE WAS ABLE TO SLEEP THROUGH MOST OF THE NIGHT. SHE C/O CHRONIC BACK PAIN AND WAS MEDICATED PER EMAR. SHE IS PLEASANT AND COOPERATIVE W/ CARE AND CALLS APPROPRIATELY.
[2022-11-16 05:58] LABS: Albumin, Blood 2.8 g/dL (3.4-5.0); Anion Gap 4 mmol/L (6-16); Blood Urea Nitrogen 23 mg/dL (8-24); Bun/Creatinine Ratio 61.5 (12.0-20.0); CO2, Blood 25 mmol/L (21-32); Calcium, Blood 8.3 mg/dL (8.5-10.1); Chloride, Blood 113 mmol/L (98-108); Creatinine, Blood 0.37 mg/dL (0.40-1.00); Glomerular Filtration Rate 121 (60-); Glucose, Blood 146 mg/dL (70-99); Potassium, Blood 4.4 mmol/L (3.5-5.5); Sodium, Blood 142 mmol/L (136-145)
--- NOTE | 2022-11-16 19:01 | NUR ---
SHIFT SUMMARY: C/O CHRONIC BACK PAIN AND INTERMITTENT PLEURITIC CHEST PAIN; MEDICATED PER EMAR WITH GOOD RELIEF. OXYGEN HAS BEEN TITRATED DOWN FROM 4 L/MIN TO 2 L/MIN NC WITH O2 SATS > 90%, RECOVERING FROM ACTIVITY MORE QUICKLY THAN YESTERDAY. HAS BEEN USING BR INDEPENDENTLY. GOOD APPETITE AND PO INTAKE. SPIRITS ARE MUCH BETTER TODAY SINCE GETTING ADEQUATE SLEEP O/N. IS HOPING TO GO HOME TOMORROW.
--- NOTE | 2022-11-17 05:39 | NUR ---
SHIFT SUMMARY: PT IS ALERT AND ORIENTED. PT IS CALM AND COOPERATIVE WITH CARE. PT CALLS APPROPRIATELY. PT IS INDEPENDENT IN THE ROOM. PT REPORTS PAIN ON SEVERAL OCCASIONS, MEDICATING PER EMAR. PT REPORTS SOB ON EXERTION, O2 @ 2 L KEEPING SATS > 90%. PT DENIES NAUSEA AND VOMITING. PT SLEPT MUCH OF THE NIGHT WHEN NOT DISTURBED. NO ACUTE CHANGES OR COMPLICATIONS. BED IN LOW POSITION, CALL LIGHT WITHIN REACH. WILL CONTINUE TO MONITOR.
[2022-11-17] MEDS ORDERED: VISBIOME 112.51 EACH PO (12:34)
[2022-11-17] MEDS ORDERED: ALBU8HFA2 INH (12:35)
[2022-11-17] MEDS ORDERED: AZIT500 PO (12:37)
[2022-11-17] MEDS ORDERED: SYMBICORT 80-10.2 GM INH (12:38)
[2022-11-17] MEDS ORDERED: CLOT10 MT (12:41)
[2022-11-17] MEDS ORDERED: GUAI600T33 PO (12:41)
[2022-11-17] MEDS ORDERED: IPRAT-ALBUT 0.5-3 ML INH (12:43)
[2022-11-17] MEDS ORDERED: Prednisone10 MG PO (12:46)
== END 2022-11-17 14:11 | disposition home or self-care (01) | DRG 189 ==
LOC: ER 09:18 → MEDS 13:34
PROVIDERS: Emergency Medicine; Internal Medicine; Nurse Practitioner Acute Care; ADMIT Family Medicine
DX: J96.01 Acute respiratory failure with hypoxia (principal); J44.1 Chronic obstructive pulmonary disease with (acute) exacerbation; B37.0 Candidal stomatitis; J45.901 Unspecified asthma with (acute) exacerbation; J06.9 Acute upper respiratory infection, unspecified; B97.81 Human metapneumovirus as the cause of diseases classified elsewhere; D72.829 Elevated white blood cell count, unspecified; T38.0X5A Adverse effect of glucocorticoids and synthetic analogues, initial encounter; I25.10 Atherosclerotic heart disease of native coronary artery without angina pectoris; I10 Essential (primary) hypertension; E11.9 Type 2 diabetes mellitus without complications; G43.909 Migraine, unspecified, not intractable, without status migrainosus; E66.01 Morbid (severe) obesity due to excess calories; B19.20 Unspecified viral hepatitis C without hepatic coma; L93.0 Discoid lupus erythematosus; Z20.822 Contact with and (suspected) exposure to COVID-19; Z95.5 Presence of coronary angioplasty implant and graft; Z79.899 Other long term (current) drug therapy; Z79.82 Long term (current) use of aspirin; Z79.2 Long term (current) use of antibiotics; Z79.02 Long term (current) use of antithrombotics/antiplatelets; Z79.891 Long term (current) use of opiate analgesic; Z98.890 Other specified postprocedural states; Z98.51 Tubal ligation status; Z98.84 Bariatric surgery status; Z68.25 Body mass index [BMI] 25.0-25.9, adult; Z87.891 Personal history of nicotine dependence
CPT/HCPCS: 0202U; 0241U; 36415; 71045; 80048; 80053; 80069; 82947; 83880; 84145; 84484; 85025; 93005; 93010; 94640; 94644; 94664; 94760; 94762; 96365; 96368; 96375; 99285-25; A9270; J0456; J0696; J1650; J1885; J2930; J3475; J7030; J7050

== ENCOUNTER 2023-09-02 11:09 | Emergency (ER) | payer OTHER ==
[~2023-09-02] VITALS: Ht 165.1 cm; Wt 81.7 kg
[~2023-09-02 11:09] MED LIST changes: +ALBU8HFA2 INH; +AZIT500 PO; +CLOT10 MT; +GUAI600T33 PO; +HYDACE10B PO; +IPRAT-ALBUT 0.5-3 ML INH; +Prednisone10 MG PO; +SYMBICORT 80-10.2 GM INH; +VISBIOME 112.51 EACH PO
[2023-09-02 11:53] VITALS: BP 174/78
[2023-09-02 12:44] LABS: Influenza A, PCR NEGATIVE (NEGATIVE); Influenza B, PCR NEGATIVE (NEGATIVE); Resp Syncytial Virus, PCR NEGATIVE (NEGATIVE); SARS-Cov-2 (COVID-19) PCR, MMC NEGATIVE (NEGATIVE)
== END 2023-09-02 14:15 | disposition home or self-care (01) ==
LOC: ER 11:09
PROVIDERS: Physician Assistant
DX: R51.9 Headache, unspecified (principal); J06.9 Acute upper respiratory infection, unspecified; B97.89 Other viral agents as the cause of diseases classified elsewhere; I10 Essential (primary) hypertension; J45.909 Unspecified asthma, uncomplicated; E11.9 Type 2 diabetes mellitus without complications; L93.0 Discoid lupus erythematosus; Z11.52 Encounter for screening for COVID-19; Z79.82 Long term (current) use of aspirin; Z79.51 Long term (current) use of inhaled steroids; Z79.02 Long term (current) use of antithrombotics/antiplatelets; Z79.899 Other long term (current) drug therapy; Z87.891 Personal history of nicotine dependence
CPT/HCPCS: 0241U; 96372; 99284-25; J0780; J1200; J1885

== ENCOUNTER 2024-02-13 06:47 | Day surgery (SDC) | payer OTHER ==
[~2024-02-13] VITALS: Ht 165.1 cm; Wt 89.8 kg
[2024-02-13] VITALS (8 sets, daily range): BP systolic 126–142; BP diastolic 51–75
[~2024-02-13 06:47] MED LIST changes: +ACYC400; -ALBU8HFA2 INH; +ALBU90OI INH; +ESZO2; +GABA300; +RANEXA1000 M1 PO; +SYMBICORT 80-46.9 GM; +Vitamin D1000 UNI1 PO
[2024-02-13] MEDS ORDERED: CeFAZolin Sodium 2,000 MG in NS 100 ML IV SCH (07:45)
[2024-02-13] MEDS ORDERED: Lactated Ringer's 1,000 ML IV SCH (07:45)
--- NOTE | 2024-02-13 07:58 | NUR ---
Ambulatory in Day Surgery. Reports 03/12 left shoulder pain. History and Allergies reviewed. Lungs with scattered rhonchi that clear with cough. no noted sob-sats 96% on ra. Npo status confirmed. Patient reports completing Chlorhexadine shower X2 prior to admission to hospital.Surgical site prepped with 2% Chlorhexidine cloth wipe. Patient States Post-Procedure ride home has been arranged.
[2024-02-13] MEDS ORDERED: propofoL 20 ML IV ONE (08:18)
[2024-02-13] MEDS ORDERED: FentaNYL Citrate 50 MCG/ML 2 ML Injection ONE (08:18)
[2024-02-13] MEDS ORDERED: Midazolam HCl 1MG / ML 2ML Vial ONE (08:18)
[2024-02-13] MEDS ORDERED: EpiNEPhrine 1 MG/1 ML 1ML Vial ONE ×2 (08:33→10:13)
[2024-02-13] MEDS ORDERED: Lidocaine 1%-Epineph 1:100000 20 ML MDV ONE (08:33)
[2024-02-13] MEDS ORDERED: SuccINYLCHOLINE Chloride 100 MG/5 ML 5MLSYR ONE (09:18)
[2024-02-13] MEDS ORDERED: Rocuronium Bromide 10 MG/ML 5ML Injection IV ONE (09:18)
[2024-02-13] MEDS ORDERED: Phenylephrine HCl 100 MCG/ML-NS 10MLSYR (1MG/10ML) ONE (09:18)
[2024-02-13] MEDS ORDERED: HYDROmorphone HCl/Pf 1MG SYR ONE (10:48)
[2024-02-13] MEDS ORDERED: Neostigmine Methylsulfate 5MG/5ML SYR ONE (11:02)
[2024-02-13] MEDS ORDERED: Glycopyrrolate 0.2 MG/ML 5ML VIAL ONE (11:02)
[2024-02-13] MEDS ORDERED: OxyCODONE HCL 5 MG TAB PO PRN (11:30)
--- NOTE | 2024-02-13 11:50 | NUR ---
PT TO [facility] AWAKE AND ALERT X 3 PT HAS DRESSING TO LEFT SHOULDER C/D/I PT DENIES PAIN AT THIS TIME. PT ASKING FOR APPLE JUICE
--- NOTE | 2024-02-13 12:50 | NUR ---
Patient up to Ambulate independently. Gait steady. Discharge instructions reviewed with patient. Patient verbalizes understanding. Copy given to patient to take home. Dressing to procedure site clean, dry, intact with no visible drainage, swelling, erythema or bruising noted. PT STATES PAIN IS MUCH BETTER AND TEACHING ON POLAR PACK AND ARM IMMOBILIZER COMPLETED. PT DCD HOME VIA
== END 2024-02-13 22:52 | disposition home or self-care (01) ==
LOC: ORSCMMR 06:47 → ORD 08:15 → ORSCMMR 22:52
PROVIDERS: Orthopaedic Surgery Sports Medicine
PROC: 0RNK4ZZ Release Left Shoulder Joint, Percutaneous Endoscopic Approach (ICD-10-PCS; principal; 2024-02-13 08:15)
PROC: 0LM24ZZ Reattachment of Left Shoulder Tendon, Percutaneous Endoscopic Approach (ICD-10-PCS; principal; 2024-02-13 08:15)
DX: M75.32 Calcific tendinitis of left shoulder (principal); M75.112 Incomplete rotator cuff tear or rupture of left shoulder, not specified as traumatic; I10 Essential (primary) hypertension; J44.9 Chronic obstructive pulmonary disease, unspecified; Z79.82 Long term (current) use of aspirin; Z79.899 Other long term (current) drug therapy; Z98.84 Bariatric surgery status; Z87.891 Personal history of nicotine dependence
CPT/HCPCS: A9270; C1713; J0171; J0330; J0690; J1170; J2250; J2371; J2704; J2710; J3010; J7120

== ENCOUNTER 2024-08-28 15:08 | Emergency (ER) | payer OTHER ==
[~2024-08-28] VITALS: Ht 165.1 cm; Wt 88.9 kg
[2024-08-28 15:17] VITALS: BP 169/93
[2024-08-28 15:56] LABS: BASOPHILS ABSOLUTE AUTO 0.12 K/mm3 (0.00-0.23); BASOPHILS PERCENT AUTO 1 % (0-2); EOSINOPHILS ABSOLUTE AUTO 0.44 K/mm3 (0.00-0.68); EOSINOPHILS PERCENT AUTO 3 % (0-6); Hemoglobin 15.4 g/dL (11.5-16.0); IMMATURE GRAN ABSOLUTE AUTO 0.04 K/mm3 (0.00-0.10); IMMATURE GRAN PERCENT AUTO 0 % (0-1); LYMPHOCYTES PERCENT AUTO 26 % (21-46); MONOCYTES ABSOLUTE AUTO 0.89 K/mm3 (0.16-1.47); MONOCYTES PERCENT AUTO 7 % (4-13); Mean Corpuscular HGB 30.5 pg (26.0-34.0); Mean Corpuscular HGB Conc 34.2 g/dL (31.5-36.5); Mean Corpuscular Volume 89 fL (80-100); Mean Platelet Volume 9.8 fL (9.1-12.4); NEUTROPHILS ABSOLUTE AUTO 8.44 K/mm3 (1.96-9.15); NEUTROPHILS PERCENT AUTO 63 % (41-73); Platelet Count 441 K/mm3 (150-400); RDW Coefficient Variation 14.5 % (11.7-14.2); RDW Standard Deviation 46.9 fL (35.1-46.3); Red Blood Cell Count 5.05 M/mm3 (3.80-5.20); White Blood Cell Count 13.33 K/mm3 (4.00-11.30)
[2024-08-28 16:20] LABS: Albumin, Blood 3.6 g/dL (3.4-5.0); Albumin/Globulin Ratio 0.9 (0.8-1.8); Bilirubin, Total 0.6 mg/dL (0.1-1.0); Bun/Creatinine Ratio 23.3 (12.0-20.0); Calcium, Blood 9.4 mg/dL (8.5-10.1); Creatinine, Blood 0.51 mg/dL (0.40-1.00); Globulin, Blood 4.2 g/dL (2.2-4.0); Potassium, Blood 4.6 mmol/L (3.5-5.5); Total Protein, Blood 7.8 g/dL (6.4-8.2)
[2024-08-28] MEDS ORDERED: Percocet 5-3251 EACH PO (17:23)
== END 2024-08-28 17:35 | disposition home or self-care (01) ==
LOC: ER 15:08
PROVIDERS: Emergency Medicine
DX: G89.18 Other acute postprocedural pain (principal); M25.562 Pain in left knee; I10 Essential (primary) hypertension; G43.909 Migraine, unspecified, not intractable, without status migrainosus; J45.909 Unspecified asthma, uncomplicated; E11.9 Type 2 diabetes mellitus without complications; Z87.891 Personal history of nicotine dependence; Z79.82 Long term (current) use of aspirin; Z79.51 Long term (current) use of inhaled steroids; Z79.899 Other long term (current) drug therapy
CPT/HCPCS: 80053; 85025; 93971; 99284-25